=== PATIENT | female | born 1990 | race Caucasian/White ===

== ENCOUNTER 2018-04-26 21:24 | Inpatient (IN) | payer OTHER ==
[2018-04-26] MEDS ORDERED: ONDANSETRON 4 MG INJ IV (23:00)
[2018-04-26] MEDS ORDERED: ACETAMINOPHEN 325 MG TAB PO (23:00)
[2018-04-26] MEDS ORDERED: HYDROCODONE/APAP (5/325) TAB PO (23:00)
[2018-04-26] MEDS ORDERED: NACL 0.9% 3 ML SYG IV (23:00)
[2018-04-26] MEDS: DEXTROSE 5%-0.45% NACL 1,000 ML IV (23:25)
[2018-04-26] MEDS: metroNIDAZOLE 500 MG/NS (PMX) 100 ML IVPB (23:28)
[2018-04-27] MEDS: metroNIDAZOLE 500 MG/NS (PMX) 100 ML IVPB ×3 (05:44→21:33)
[2018-04-27 06:11] LABS: ADD MAN DIFF? NO
[2018-04-27 06:14] LABS: WHITE BLOOD COUNT 17.1 10^3/ul (4.8-10.8)
[2018-04-27 06:15] LABS: BASOPHILS % 0.2 % (0.0-2.0); EOSINOPHILS % 0.2 % (0.0-7.0); HEMATOCRIT 29.2 % (37.0-47.0); HEMOGLOBIN 8.8 g/dl (12.0-16.0); LYMPHOCYTES # 2.7 10^3/ul (0.8-2.9); LYMPHOCYTES % 15.5 % (15.0-51.0); MEAN CORPUSCULAR HEMOGLOBIN 22.2 pg (29.0-33.0); MEAN CORPUSCULAR HGB CONC 30.1 g/dl (32.0-37.0); MEAN CORPUSCULAR VOLUME 73.7 fl (82.0-101.0); MEAN PLATELET VOLUME 10.2 fl (7.4-10.4); MONOCYTE # 0.7 10^3/ul (0.3-0.9); MONOCYTES % 4.1 % (0.0-11.0); NEUTROPHIL # 13.5 10^3/ul (1.6-7.5); NEUTROPHILS % 79.2 % (39.0-77.0); PLATELET COUNT 384 10^3/UL (140-415); RED BLOOD COUNT 3.96 10^6/ul (4.20-5.40); RED CELL DISTRIBUTION WIDTH 15.8 % (11.5-14.5)
[2018-04-27] MEDS: DEXTROSE 5%-0.45% NACL 1,000 ML IV ×2 (06:58→10:59)
[2018-04-27 07:06] LABS: ALANINE AMINOTRANSFERASE 16 IU/L (13-69); ALBUMIN/GLOBULIN RATIO 0.96; ALKALINE PHOSPHATASE 103 IU/L (42-121); ANION GAP 8 (5-13); ASPARTATE AMINO TRANSFERASE < 8 IU/L (15-46); BILIRUBIN,INDIRECT 0.3 mg/dl (0-1.1); BILIRUBIN,TOTAL 0.3 mg/dl (0.2-1.3); BLOOD UREA NITROGEN 9 mg/dl (7-20); CARBON DIOXIDE 26 mmol/L (21-31); CHLORIDE 103 mmol/L (97-110); CREATININE 0.59 mg/dl (0.44-1.00); Estimated GFR > 60 mL/min (>60); GLUCOSE 103 mg/dl (70-220); MAGNESIUM 1.9 mg/dl (1.7-2.5); PHOSPHORUS 3.3 mg/dl (2.5-4.9); POTASSIUM 3.5 mmol/L (3.5-5.1); SODIUM 137 mmol/L (135-144); TOTAL PROTEIN 6.1 g/dl (6.1-8.1)
[2018-04-27] MEDS: CIPROFLOXACIN 400MG/D5W 200 ML IVPB ×2 (08:36→20:03)
[2018-04-27] MEDS: HYDROCODONE/APAP (5/325) TAB PO ×2 (10:07→18:00)
[2018-04-27 15:52] LABS: LACTIC ACID 0.6 mmol/L (0.5-2.0)
[2018-04-28] MEDS: DEXTROSE 5%-0.45% NACL 1,000 ML IV ×4 (00:08→23:46)
[2018-04-28] MEDS: HYDROCODONE/APAP (5/325) TAB PO (04:49)
[2018-04-28] MEDS: metroNIDAZOLE 500 MG/NS (PMX) 100 ML IVPB ×3 (04:51→22:02)
[2018-04-28 05:40] LABS: ADD MAN DIFF? NO
[2018-04-28 05:46] LABS: BASOPHILS % 0.2 % (0.0-2.0); EOSINOPHILS # 0.1 10^3/ul (0.0-0.5); EOSINOPHILS % 0.8 % (0.0-7.0); HEMATOCRIT 29.6 % (37.0-47.0); HEMOGLOBIN 8.7 g/dl (12.0-16.0); LYMPHOCYTES # 2.2 10^3/ul (0.8-2.9); LYMPHOCYTES % 16.7 % (15.0-51.0); MEAN CORPUSCULAR HEMOGLOBIN 22.3 pg (29.0-33.0); MEAN CORPUSCULAR HGB CONC 29.4 g/dl (32.0-37.0); MEAN CORPUSCULAR VOLUME 75.9 fl (82.0-101.0); MEAN PLATELET VOLUME 10.3 fl (7.4-10.4); MONOCYTE # 0.7 10^3/ul (0.3-0.9); MONOCYTES % 5.3 % (0.0-11.0); NEUTROPHIL # 10.2 10^3/ul (1.6-7.5); NEUTROPHILS % 76.5 % (39.0-77.0); PLATELET COUNT 382 10^3/UL (140-415); RED CELL DISTRIBUTION WIDTH 15.9 % (11.5-14.5)
[2018-04-28 05:46] LABS: WHITE BLOOD COUNT 13.3 10^3/ul (4.8-10.8)
[2018-04-28 05:51] LABS: RETICULOCYTE COUNT # 0.039 X10^6 (0.020-0.110)
[2018-04-28 05:51] LABS: RETICULOCYTE RBC 3.98
[2018-04-28 06:00] LABS: ANION GAP 6 (5-13); BLOOD UREA NITROGEN 5 mg/dl (7-20); CARBON DIOXIDE 28 mmol/L (21-31); CHLORIDE 102 mmol/L (97-110); CREATININE 0.59 mg/dl (0.44-1.00); Estimated GFR > 60 mL/min (>60); GLUCOSE 108 mg/dl (70-220); MAGNESIUM 1.9 mg/dl (1.7-2.5); PHOSPHORUS 3.3 mg/dl (2.5-4.9); POTASSIUM 3.6 mmol/L (3.5-5.1); SODIUM 136 mmol/L (135-144)
[2018-04-28 06:26] LABS: IRON < 10 ug/dl (35-150)
[2018-04-28 06:35] LABS: TOTAL IRON BINDING CAPACITY 286 ug/dl (241-421)
[2018-04-28] MEDS: CIPROFLOXACIN 400MG/D5W 200 ML IVPB ×2 (09:31→20:49)
[2018-04-28 12:51] LABS: LIPASE 20 U/L (23-300)
[2018-04-28] MEDS: SOD FERRIC GLUC COMPLX 125 MG in SOD CHLORIDE 0.9% 100 ML IVPB (12:58)
[2018-04-28] MEDS: morphine 2 MG INJ IV (14:55)
[2018-04-29] MEDS: morphine 2 MG INJ IV ×3 (04:03→19:57)
[2018-04-29 04:59] LABS: ADD MAN DIFF? NO
[2018-04-29 05:03] LABS: WHITE BLOOD COUNT 10.1 10^3/ul (4.8-10.8)
[2018-04-29 05:03] LABS: BASOPHILS % 0.3 % (0.0-2.0); EOSINOPHILS # 0.1 10^3/ul (0.0-0.5); EOSINOPHILS % 1.3 % (0.0-7.0); HEMATOCRIT 29.6 % (37.0-47.0); HEMOGLOBIN 8.7 g/dl (12.0-16.0); LYMPHOCYTES % 19.7 % (15.0-51.0); MEAN CORPUSCULAR HGB CONC 29.4 g/dl (32.0-37.0); MEAN CORPUSCULAR VOLUME 74.9 fl (82.0-101.0); MEAN PLATELET VOLUME 9.9 fl (7.4-10.4); MONOCYTE # 0.6 10^3/ul (0.3-0.9); MONOCYTES % 5.9 % (0.0-11.0); NEUTROPHIL # 7.3 10^3/ul (1.6-7.5); NEUTROPHILS % 72.1 % (39.0-77.0); PLATELET COUNT 391 10^3/UL (140-415); RED BLOOD COUNT 3.95 10^6/ul (4.20-5.40); RED CELL DISTRIBUTION WIDTH 15.6 % (11.5-14.5)
[2018-04-29 05:21] LABS: ANION GAP 5 (5-13); BLOOD UREA NITROGEN 4 mg/dl (7-20); CALCIUM 8.1 mg/dl (8.4-10.2); CARBON DIOXIDE 27 mmol/L (21-31); CHLORIDE 104 mmol/L (97-110); CREATININE 0.56 mg/dl (0.44-1.00); Estimated GFR > 60 mL/min (>60); GLUCOSE 111 mg/dl (70-220); PHOSPHORUS 3.5 mg/dl (2.5-4.9); POTASSIUM 3.5 mmol/L (3.5-5.1); SODIUM 136 mmol/L (135-144)
[2018-04-29] MEDS: metroNIDAZOLE 500 MG/NS (PMX) 100 ML IVPB ×3 (06:01→22:28)
[2018-04-29] MEDS: DEXTROSE 5%-0.45% NACL 1,000 ML IV ×2 (08:27→17:18)
[2018-04-29] MEDS: CIPROFLOXACIN 400MG/D5W 200 ML IVPB ×2 (09:38→21:04)
[2018-04-29] MEDS: POTASSIUM CHLORIDE 100 ML IVPB ×2 (10:53→12:00)
[2018-04-29] MEDS: SOD FERRIC GLUC COMPLX 125 MG in SOD CHLORIDE 0.9% 100 ML IVPB (13:03)
[2018-04-29] MEDS: POTASSIUM CHLORIDE 20 MEQ POWDER FOR ORAL SOLN PO (14:10)
[2018-04-30] MEDS: DEXTROSE 5%-0.45% NACL 1,000 ML IV ×2 (00:43→09:47)
[2018-04-30 05:17] LABS: ADD MAN DIFF? NO
[2018-04-30 05:18] LABS: ABNORMAL IP MESSAGE 1; BASOPHILS % 0.3 % (0.0-2.0); EOSINOPHILS # 0.2 10^3/ul (0.0-0.5); EOSINOPHILS % 1.9 % (0.0-7.0); HEMATOCRIT 31.7 % (37.0-47.0); HEMOGLOBIN 9.1 g/dl (12.0-16.0); LYMPHOCYTES # 2.2 10^3/ul (0.8-2.9); LYMPHOCYTES % 25.1 % (15.0-51.0); MEAN CORPUSCULAR HEMOGLOBIN 21.7 pg (29.0-33.0); MEAN CORPUSCULAR HGB CONC 28.7 g/dl (32.0-37.0); MEAN CORPUSCULAR VOLUME 75.5 fl (82.0-101.0); MEAN PLATELET VOLUME 9.7 fl (7.4-10.4); MONOCYTE # 0.7 10^3/ul (0.3-0.9); MONOCYTES % 7.4 % (0.0-11.0); NEUTROPHIL # 5.7 10^3/ul (1.6-7.5); NEUTROPHILS % 64.6 % (39.0-77.0); PLATELET COUNT 435 10^3/UL (140-415); RED CELL DISTRIBUTION WIDTH 15.5 % (11.5-14.5)
[2018-04-30 05:18] LABS: WHITE BLOOD COUNT 8.8 10^3/ul (4.8-10.8)
[2018-04-30 05:41] LABS: POSITIVE DIFF @See below
[2018-04-30] MEDS: metroNIDAZOLE 500 MG/NS (PMX) 100 ML IVPB (05:42)
[2018-04-30 05:50] LABS: ANION GAP 7 (5-13); BLOOD UREA NITROGEN 4 mg/dl (7-20); CALCIUM 8.4 mg/dl (8.4-10.2); CARBON DIOXIDE 28 mmol/L (21-31); CHLORIDE 102 mmol/L (97-110); CREATININE 0.59 mg/dl (0.44-1.00); Estimated GFR > 60 mL/min (>60); GLUCOSE 105 mg/dl (70-220); PHOSPHORUS 3.5 mg/dl (2.5-4.9); POTASSIUM 3.7 mmol/L (3.5-5.1); SODIUM 137 mmol/L (135-144)
[2018-04-30] MEDS: CIPROFLOXACIN 400MG/D5W 200 ML IVPB (09:46)
[2018-04-30] MEDS: SOD FERRIC GLUC COMPLX 125 MG in SOD CHLORIDE 0.9% 100 ML IVPB (13:09)
[2018-04-30] MEDS: metroNIDAZOLE 500 MG TAB PO ×2 (14:39→21:21)
[2018-04-30] MEDS: CIPROFLOXACIN 500 MG TAB PO (18:33)
[2018-04-30] MEDS: HYDROCODONE/APAP (5/325) TAB PO (21:22)
[2018-05-01 05:22] LABS: ADD MAN DIFF? NO
[2018-05-01 05:36] LABS: WHITE BLOOD COUNT 8.9 10^3/ul (4.8-10.8)
[2018-05-01 05:36] LABS: BASOPHILS % 0.3 % (0.0-2.0); EOSINOPHILS # 0.2 10^3/ul (0.0-0.5); EOSINOPHILS % 2.1 % (0.0-7.0); HEMATOCRIT 32.3 % (37.0-47.0); HEMOGLOBIN 9.4 g/dl (12.0-16.0); LYMPHOCYTES # 2.8 10^3/ul (0.8-2.9); LYMPHOCYTES % 31.2 % (15.0-51.0); MEAN CORPUSCULAR HEMOGLOBIN 22.1 pg (29.0-33.0); MEAN CORPUSCULAR HGB CONC 29.1 g/dl (32.0-37.0); MEAN PLATELET VOLUME 9.7 fl (7.4-10.4); MONOCYTE # 0.6 10^3/ul (0.3-0.9); MONOCYTES % 6.5 % (0.0-11.0); NEUTROPHIL # 5.3 10^3/ul (1.6-7.5); NEUTROPHILS % 59.3 % (39.0-77.0); PLATELET COUNT 459 10^3/UL (140-415); RED BLOOD COUNT 4.25 10^6/ul (4.20-5.40); RED CELL DISTRIBUTION WIDTH 15.7 % (11.5-14.5)
[2018-05-01] MEDS: metroNIDAZOLE 500 MG TAB PO (06:00)
[2018-05-01] MEDS: CIPROFLOXACIN 500 MG TAB PO (06:00)
[2018-05-01 06:03] LABS: ANION GAP 7 (5-13); BLOOD UREA NITROGEN 11 mg/dl (7-20); CALCIUM 8.6 mg/dl (8.4-10.2); CARBON DIOXIDE 28 mmol/L (21-31); CHLORIDE 104 mmol/L (97-110); CREATININE 0.61 mg/dl (0.44-1.00); Estimated GFR > 60 mL/min (>60); GLUCOSE 90 mg/dl (70-220); PHOSPHORUS 4.8 mg/dl (2.5-4.9); POTASSIUM 3.8 mmol/L (3.5-5.1); SODIUM 139 mmol/L (135-144)
== END 2018-05-01 12:00 | disposition home or self-care (01) | DRG 872 ==
LOC: MS1 21:24
DX: A41.9 Sepsis, unspecified organism (principal); K57.92 Diverticulitis of intestine, part unspecified, without perforation or abscess without bleeding; Z68.42 Body mass index [BMI] 45.0-49.9, adult; D62 Acute posthemorrhagic anemia; E66.9 Obesity, unspecified
CPT/HCPCS: 76705; 80048; 80053; 83540; 83605; 83690; 83735; 84100; 85025; 85045; 87040; 87045; 87075